=== PATIENT | male | born 1975 | race Caucasian/White ===

== ENCOUNTER 2016-08-28 14:35 | Emergency (ER) | payer OTHER ==
[~2016-08-28] VITALS: Ht 182.9 cm; Wt 125.0 kg
[2016-08-28 14:36] VITALS: BP 142/97; PULSE 95; RESP 18; TEMP 98.1; O2SAT 97
[2016-08-28] MEDS ORDERED: ASPI81TA81 (15:24)
[2016-08-28] MEDS ORDERED: PROZ40CA PO (15:24)
[2016-08-28] MEDS ORDERED: ATOR20TA15 PO (15:28)
--- NOTE | 2016-08-28 16:10 | PD ---
HPI Chief Complaint: Fall Time Seen by Provider: 16:10 Travel History International Travel<30 days: Yes ([facility]) Contact w/Intl Traveler<30days: Yes ([facility]) Name of Country Traveled to: [place] Traveled to known affect area: No History of Present Illness HPI 31-year-old male presents to the emergency Department with complaint of right- sided head pain and right-sided mid and low back pain after falling off a ladder approximately 3 feet and falling into drywall, breaking the drywall at about 12:30 PM today. He did hit his head and denies loss of consciousness. Denies neck pain. Reports right-sided back pain. Reports headache. Denies nausea, vomiting. Denies change in mentation, confusion, disorientation, slurred speech. Denies focal deficits or weakness. Denies change in gait. Denies paresthesias, loss of sensation, decreased range of motion, decreased strength to all extremities. Denies encopresis, incontinence, saddle anesthesias. Denies anticoagulants. He is not taking any medications or tried any treatments to alleviate symptoms. No known allergies. [place] doctors are primary care providers. History of anxiety and takes fluoxetine. No other modifying factors or associated signs and symptoms. [facility] Social History Tobacco Use: No Allergies-Medications (Allergen,Severity, Reaction): Coded Allergies: No Known Allergies (Unverified , 08/28/16) Reported Meds & Prescriptions Reported Meds & Active Scripts Active Robaxin (Methocarbamol) 500 Mg Tab 500 Mg PO QID PRN Ibuprofen 800 Mg Tab 800 Mg PO Q6HR PRN Reported Atorvastatin (Atorvastatin Calcium) 20 Mg Tab 20 Mg PO HS Aspir-81 (Aspirin) 81 Mg Tabdr Prozac (Fluoxetine HCl) 40 Mg Cap 40 Mg PO DAILY Review of Systems Except as stated in HPI: all other systems reviewed are Neg Physical Exam Narrative GENERAL: Well-nourished, well-developed male patient, in no acute distress SKIN: Warm and dry. HEAD: Atraumatic. Normocephalic. No facial or scalp abrasions or lacerations noted. No facial droop noted. Tongue midline. EYES: Pupils equal and round at 3 mm with brisk reaction. No scleral icterus. No injection or drainage. No raccoon eyes. No orbital tenderness on palpation bilaterally. ENT: Mucosa pink and moist. No erythema or exudates. No uvular edema. No uvular , palatal, or tonsillar deviation. Airway patent. Nares without nasal blood, purulent drainage or septal hematoma. No rhinorrhea. EARS: Bilateral pinnae and external canals appear within normal limits. Bilateral tympanic membranes without erythema, dullness, hemotympanum or perforation. No otorrhea. No brice signs. NECK: Moving freely. Trachea midline. No lymphadenopathy. Active rotation of the neck greater than 45 left and right. No midline point tenderness on palpation of the cervical spine. No obvious deformities. CHEST: Nontender throughout without deformity or crepitance. No retractions or use of accessory muscles. CARDIOVASCULAR: Regular rate and rhythm. No murmur appreciated. RESPIRATORY: No accessory muscle use. Clear to auscultation. Breath sounds equal bilaterally. GASTROINTESTINAL: Abdomen soft, non-tender, nondistended. Hepatic and splenic margins not palpable. Bowel sounds are active 4 quadrants. MUSCULOSKELETAL: Bilateral lower extremities supple and non-tense with 2+ pedal pulses and sensory intact; with full range of motion and 5/5 strength. Right straight leg raise is positive for low back pain; left straight-leg raise raise is negative for low back pain. Ambulatory in room with normal gait. Sitting up in bed at 90. No obvious deformities. No clubbing. No cyanosis. No edema. BACK: No midline Point tenderness on palpation of the lumbar or thoracic spine. Reproducible tenderness to the musculature of the right mid and lower back. No obvious deformities. Patient sitting up in bed at 90. Ambulatory in room with normal gait. NEUROLOGICAL: Awake and alert. Oriented 3. No obvious cranial nerve deficits. Motor grossly within normal limits. Normal speech. Left arm with downward drift. Difficulty with nose to finger test with left upper extremity; right upper extremity with normal no stiff finger test. Moves all extremities. 5/5 strength to all extremities. Sensory intact. PSYCHIATRIC: Appropriate mood and affect; insight and judgment normal. Data Data Last Documented VS Vital Signs Date Time Temp Pulse Resp B/P Pulse Ox O2 Delivery O2 Flow Rate FiO2 08/28/16 14:36 98.1 95 18 142/[address] Brain W/O Iv Contrast(Rout) (08/28/16 ) Orphenadrine Inj (Norflex Inj) (08/28/16 16:30) MDM Medical Decision Making Medical Screen Exam Complete: Yes Emergency Medical Condition: Yes Medical Record Reviewed: Yes Differential Diagnosis Fall, ICH, closed head injury, back strain, muscle spasms of back Narrative Course 41-year-old male with head pain and right-sided back pain after a fall from approximately 3 feet off a ladder. He did hit his head on the right side and denies loss of consciousness. Patient has abnormal neuro exam with left arm downward drift and abnormal left nose to finger test on physical exam. He denies neck pain. [place] C-Spine Rule suggests the C-Spine can be cleared clinically of fracture, and imaging is not required. There is no midline point tenderness on palpation of the cervical spine. The patient is able to actively rotate the neck 45 left and right. The patient is sitting up in bed at 90. The patient is ambulatory. Right-sided back pain is consistent with muscle strain and muscle spasms. Norflex ordered. CT head ordered. 1716: CT head concludes no acute findings; there is maxillary and ethmoid sinus disease. Ibuprofen administered in the ER. Ibuprofen and Robaxin prescribed for home. Patient verbalizes understanding and agreement with treatment plan. Patient is medically cleared and stable for discharge. Discussed reasons to return to the emergency department. Instructed patient to follow up with primary care provider. Patient agrees with treatment plan. The patients vital signs are stable and the patient is stable for outpatient follow- up and treatment. Patient discharged home, stable and in no acute distress. Diagnosis Primary Impression: Fall from ladder Qualified Code: W11.XXXA - Fall from ladder, initial encounter Additional Impressions: Muscle spasm of back Strain of mid-back Qualified Code: S29.012A - Strain of mid-back, initial encounter Low back strain Qualified Code: S39.012A - Low back strain, initial encounter Closed head injury Qualified Code: S09.90XA - Closed head injury, initial encounter Referrals: Primary Care Physician Patient Instructions: Fall Prevention (ED), General Instructions, Head Injury ( ED), Low Back Strain (ED), Muscle Spasm (ED), Muscle Strain (ED), Thoracic Back Strain (ED) Departure Forms: Tests/Procedures, Work Release Enter return to work date: Sep 01, 2016 Additional Instructions: Tylenol or ibuprofen as directed and as needed for pain Flexeril as prescribed and as needed for muscle spasms Heating pad and/or ice to affected area to reduce pain Avoid aggravating activities; increase activity as tolerated Follow-up with primary care provider Return to emergency department immediately with worsening of symptoms Med/Other Pt SpecificInfo: Prescription(s) given Scripts Methocarbamol (Robaxin)500 Mg [id number] Mg PO QID PRN (MUSCLE SPASM) #30 TAB Ref 0 Prov:Amanda Buitrago 08/28/16 Ibuprofen 800 Mg [id number] Mg PO Q6HR PRN (PAIN) #30 TAB Ref 0 Prov:Amanda Buitrago 08/28/16 Disposition: 01 DISCHARGE HOME Condition: Stable Amanda Buitrago Aug 28, 2016 16:10
[2016-08-28] MEDS ORDERED: ORPHENADRINE INJ 60 MG/2 ML AMP IM ONE (16:30)
--- NOTE | 2016-08-28 17:09 | RADRPT ---
EXAM DATE/TIME: 08/28/2016 16:44 [facility] COMPARISON: No previous studies available for comparison. INDICATIONS : Fall from ladder, trauma to right side of head. RADIATION DOSE: 56.35 CTDIvol (mGy) MEDICAL HISTORY : None SURGICAL HISTORY : None. ENCOUNTER: Initial ACUITY: 1 day PAIN SCALE: 5/10 LOCATION: Right cranial TECHNIQUE: Multiple contiguous axial images were obtained of the head. Using automated exposure control and adj ustment of the mA and/or kV according to patient size, radiation dose was kept as low as reasonably a chievable to obtain optimal diagnostic quality images. FINDINGS: CEREBRUM: The ventricles are normal for age. No evidence of midline shift, mass lesion, hemorrhage or acute in farction. No extra-axial fluid collections are seen. POSTERIOR FOSSA: The cerebellum and brainstem are intact. The 4th ventricle is midline. The cerebellopontine angle i s unremarkable. EXTRACRANIAL: The visualized portion of the orbits is intact. There is maxillary and ethmoid sinus disease. SKULL: The calvaria is intact. No evidence of skull fracture. CONCLUSION: No intracranial abnormality is seen. There is maxillary and ethmoid sinus disease. Franklin De La Cruz MD on August 28, 2016 at 17:06 Board Certified Radiologist. This report was verified electronically.
[2016-08-28] MEDS ORDERED: ROBA500T PO (17:20)
[2016-08-28] MEDS ORDERED: IBUP800T23 PO (17:20)
[2016-08-28] MEDS ORDERED: IBUPROFEN 800 MG TAB PO ONE (17:30)
== END 2016-08-28 18:11 | disposition home or self-care (01) ==
LOC: NEPB 14:35
DX: S09.90XA Unspecified injury of head, initial encounter (principal); S39.012A Strain of muscle, fascia and tendon of lower back, initial encounter; S29.012A Strain of muscle and tendon of back wall of thorax, initial encounter; W11.XXXA Fall on and from ladder, initial encounter; Y99.0 Civilian activity done for income or pay; Y93.H3 Activity, building and construction; Y92.61 Building [any] under construction as the place of occurrence of the external cause
CPT/HCPCS: 70450; 96372; 99284; J2360